=== PATIENT | female | born 1985 | race Caucasian/White ===

== ENCOUNTER 2020-08-25 13:16 | Emergency (ER) | payer SELFPAY ==
[2014-11-13 22:18] VITALS: BP 104/67
== END 2020-08-25 15:00 | disposition left against medical advice (07) ==
LOC: ER 13:16
DX: S71.111A Laceration without foreign body, right thigh, initial encounter (principal); Z53.21 Procedure and treatment not carried out due to patient leaving prior to being seen by health care provider; W26.0XXA Contact with knife, initial encounter; Y93.89 Activity, other specified; Y92.89 Other specified places as the place of occurrence of the external cause; Y99.8 Other external cause status